=== PATIENT | female | born 1970 | race African-American/Black ===

== ENCOUNTER 2016-11-14 15:55 | Emergency (ER) | payer BC ==
[~2016-11-14] VITALS: Ht 165.1 cm; Wt 113.4 kg
[~2016-11-14 15:55] MED LIST: AMLODIPINE BES2.5 MG ORAL; ATENOLOL25 MG ORAL; HYDROCHLOROTH12.5 M2 ORAL
[2016-11-14 15:57] VITALS: BP 167/108
[2016-11-14] MEDS ORDERED: Atenolol 25mg tab ORAL ONE (16:45)
[2016-11-14] MEDS ORDERED: Oxycodone/Acetaminophen 5-325 ORAL ONE (16:45)
--- NOTE | 2016-11-14 16:59 | Emergency Room Report ---
History of Present Illness General Chief Complaint: Hypertension Source: Patient, EMS Present Illness HPI 46 YOF BIBEMS from "post-op center" following bariatric surgery with Dr Julia Ospina for "elevated BP." Patient didnt take any of her HTN meds today because "I didnt know I was supposed to take them." Patient also states she has been trouble breathing since procedure but denies smoking, history of asthma, history of DVT. States "they injected all this air into me." She is also requesting Rx for pain meds "That they were supposed to give me" and "gas-x that they were also supposed to give me." Patient also endorses that Dr Ospina instructed his nurse to give patient her HTN meds but patient states RN did not do that and called EMS instead. She otherwise denies chest pain, abd pain, headache. Allergies: Coded Allergies: No Known Allergies (Unverified , 11/14/16) Patient History Past Medical History: HTN Past Surgical History: other - gastric sleeve Pertinent Family History: none Social History: Denies: alcohol use, drug use, smoking Now: No Immunizations: UTD Reviewed Nursing Documentation: PMH: Agreed, PSxH: Agreed Nursing Documentation-PMH Hx Cardiac Problems: Yes - Bypass surgery Review of Systems All Other Systems: negative except mentioned in HPI Physical Exam Vital Signs Date Time Temp Pulse Resp B/P Pulse Ox O2 Delivery O2 Flow Rate FiO2 11/14/16 15:49 89 18 167/108 100 Room Air 11/14/16 15:57 98.2 Sp02 EP Interpretation: reviewed, abnormal General Appearance: normal inspection, well appearing, no apparent distress, alert, GCS 15, non-toxic Head: normocephalic, atraumatic Eyes: bilateral eye EOMI, bilateral eye PERRL ENT: normal ENT inspection Neck: normal inspection, full range of motion, supple, no bony tend Respiratory: normal inspection, chest non-tender, lungs clear, normal breath sounds, no rhonchi, no respiratory distress, no retraction, no accessory muscle use, no wheezing, speaking full sentences Cardiovascular #1: regular rate, rhythm, no edema Gastrointestinal: normal inspection, normal bowel sounds, non tender, soft, no guarding, no hernia Rectal: other - Post-op bandage in place. No appreciable warmth, or sign of infection. Abd otherwise non peritoneal. Genitourinary: no CVA tenderness Musculoskeletal: normal inspection, back normal, normal range of motion, Yaima' s Sign negative Neurologic: normal inspection, alert, oriented x3, responsive, child care lead teacher III-XII nml as tested, speech normal Psychiatric: normal inspection, judgement/insight normal, mood/affect normal Skin: normal inspection, normal color, no rash Medical Decision Making Diagnostic Impression: Primary Impression: Hypertension Qualified Codes: I10 - Essential (primary) hypertension Additional Impressions: Post-op pain SOB (shortness of breath) ER Course 1) Elevated BP. Patient's BP reduced from 167/108 to 169/77 after receiving her 3 BP meds and analgesia for post-op pain. Patient endorses having enough HTN meds at home. No need for refills 2) Lungs clear. O2 sat 100% on RA. No rales, crackles rhonchi or wheezing. Doubt acute development of PNA. Low suspicion for PE at this time - PERC negative 3) post-op pain. gave patient percocet in ED and short course to take at home. I'm uncomfortable prescribing gas-x or other GI meds post-op to a procedure I did not do. I advised her to followup with Dr Ospina for required GI meds and pain meds DC home Last Vital Signs Date Time Temp Pulse Resp B/P Pulse Ox O2 Delivery O2 Flow Rate FiO2 11/14/16 16:45 89 169/77 11/14/16 15:57 18 Room Air 11/14/16 15:57 98.2 100 Status: improved Disposition: HOME, SELF-CARE JOSÉ MIGUEL MURGUIA M.D. Nov 14, 2016 16:59
[2016-11-14] MEDS ORDERED: PERCOCET 5-3251 EACH ORAL (17:01)
[2016-11-14 17:25] VITALS: BP 158/73
[2016-11-14 17:27] VITALS: BP 158/73
== END 2016-11-14 21:57 | disposition home or self-care (01) ==
LOC: EDBD 15:55 → EMR 16:40
DX: I10 Essential (primary) hypertension (principal); G89.18 Other acute postprocedural pain; R06.02 Shortness of breath; Z98.0 Intestinal bypass and anastomosis status
CPT/HCPCS: 99283